=== PATIENT | female | born 1950 | race Caucasian/White ===

== ENCOUNTER 2017-12-30 16:06 | Observation (INO) | payer MEDICARE ==
[~2017-12-30] VITALS: Ht 162.6 cm; Wt 66.4 kg
[~2017-12-30 16:06] MED LIST: ALPR0.5T99 PO; BIOT5000 PO; CARB25TA PO; CITRTAB8 PO; COEN1CAP PO; ESTR0.5T9 PO; FOLI1 PO; FURO20 PO; GABA300C3 PO; HYDR-3129 PO; MAGN400C2 PO; METH25IN13 IV; NORC7.5T PO; OMEP20CA5 PO; PRED5TAB PO; PRIM50TA PO; RANI150T PO; RED600TA PO; ST JTAB PO; TAB-TAB PO; VITA200017 PO; WELLTAB39 PO
[2017-12-30 16:07] VITALS: BP 115/81; PULSE 88; RESP 16; TEMP 98.9; O2SAT 99
[2017-12-30] MEDS ORDERED: SODIUM CHLORIDE 0.9% FLUSH 10 ML FLUSH IVF PRN (16:45)
[2017-12-30 17:31] VITALS: O2SAT 99
--- NOTE | 2017-12-30 17:35 | RADRPT ---
EXAM DATE/TIME: 12/30/2017 16:53 [place] COMPARISON: No previous studies available for comparison. INDICATIONS : Chest pain. MEDICAL HISTORY : None. SURGICAL HISTORY : None. ENCOUNTER: Initial ACUITY: 1 day PAIN SCORE: 2/10 LOCATION: middle chest. FINDINGS: A single view of the chest demonstrates the lungs to be symmetrically aerated without evidence of mas s, infiltrate or effusion. The cardiomediastinal contours are unremarkable. Osseous structures are intact. There are multiple spinal stimulator leads projected over the thoracic spine. CONCLUSION: No acute disease. Gokul Cuenca MD on December 30, 2017 at 17:31 Board Certified Radiologist. This report was verified electronically.
--- NOTE | 2017-12-30 17:37 | PD ---
HPI Chief Complaint: Chest Pain Time Seen by Provider: 16:32 Travel History International Travel<30 days: No Contact w/Intl Traveler<30days: No Traveled to known affect area: No History of Present Illness HPI 67-year-old female with PMH of rheumatoid arthritis, Misha-Schilling, anxiety, depression, asthma, HLD, CVA, GERD, hiatal hernia, chronic back pain, implanted spinal stimulator on methotrexate presents to the ED for evaluation of sudden onset 7/10 centralized chest pain. Pain is steady, no alleviating or exacerbating factors reported. This occurred at around 830 this morning. States that she "felt like an elephant was sitting on my chest." She endorses intermittent shortness of breath throughout the day. She denies associated diaphoresis, nausea, vomiting, palpitations. She went to her hairdresser's, then to an appointment at her pain management provider before "swinging by" her primary care, Dr. Andujar's office. She had an EKG and chest x-ray performed there but was instructed to seek treatment at the ED. She endorses distant history of cigarette smoking. She endorses familiar history of PA in her grandmother. She has never had a stress test. She takes a baby aspirin daily PFSH Past Medical History Hx Anticoagulant Therapy: No Arthritis: Yes (RA, DDD) Asthma: Yes Autoimmune Disease: Yes ( RHEUMATOID ARTHRITIS. MISHA-BARRE. 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.) Anxiety: Yes Depression: Yes Heart Rhythm Problems: Yes Cancer: No Cardiovascular Problems: No High Cholesterol: Yes Cerebrovascular Accident: Yes Diabetes: No Diminished Hearing: No Endocrine: No Gastrointestinal Disorders: Yes (GERD, ULCER HX) GERD: Yes Glaucoma: No Genitourinary: No Headaches: Yes Hepatitis: No Hiatal Hernia: Yes Hypertension: No Immune Disorder: No Musculoskeletal: Yes (CHRONIC PAIN DUE TO NECK AND BACK SX, ARTHRITIS, DDD) Neurologic: Yes (SPINAL CORD INJURY, TIA) Psychiatric: Yes (CLAUSTRAPHOBIA, DEPRESSION, ANXIETY, PTSD) Reproductive: No Respiratory: No Thyroid Disease: No : 2 Para: 2 Ovarian Cysts: Yes Tubal Ligation: Yes Past Surgical History Abdominal Surgery: Yes (LAP THOMAS, APPY) AICD: No Appendectomy: Yes Body Medical Devices: SPINAL CORD STIMULATOR, LUMBAR CAGE Cardiac Surgery: No Cholecystectomy: Yes Ear Surgery: No Endocrine Surgery: No Eye Surgery: No Genitourinary Surgery: Yes (CYSTO AND RECTOCEL,PROLASPED BLADDER) Gynecologic Surgery: Yes (OVARIAN CYSTECTOMIES, RACHEL, AP REP.) Hysterectomy: Yes Joint Replacement: No Neurologic Surgery: Yes (TEMP;/ PERM SP. CD. STIM) Oral Surgery: No Pacemaker: No Other Surgery: Yes Social History Alcohol Use: Yes (Wine every night) Tobacco Use: No Substance Use: No Allergies-Medications (Allergen,Severity, Reaction): Coded Allergies: Sulfa (Sulfonamide Antibiotics) (Unverified Allergy, Severe, HIVES, THROAT CLOSES, 12/30/17) HIVES amoxicillin (Unverified Allergy, Severe, BREATHING DIFFICULTIES, 12/30/17) chlorpromazine (Unverified Allergy, Severe, CARDIAC ARREST, 12/30/17) SOB hydromorphone (Unverified Allergy, Severe, PASSED OUT, 12/30/17) meperidine (Unverified Allergy, Severe, PASSED OUT, 12/30/17) PASSED OUT morphine (Unverified Allergy, Severe, HIVES, THROAT CLOSES, 12/30/17) IV only cephalexin (Unverified Allergy, Mild, NAUSEA, 12/30/17) ciprofloxacin (Unverified Allergy, Mild, NAUSEA, 12/30/17) lithium (Unverified Allergy, Mild, MOUTH LESIONS, 12/30/17) piroxicam (Unverified Allergy, Mild, MOUTH LESIONS, 12/30/17) fentanyl (Verified Allergy, Unknown, 12/30/17) Uncoded Allergies: LACTOSE INTOLERANT (Allergy, Unknown, 08/08/03) Reported Meds & Prescriptions Reported Meds & Active Scripts Active [place] 10/325 (Hydrocodone-Acetaminophen 10325) 1 Tab Tab 1 Tab PO Q6H PRN Reported Lasix 20 Mg Tab (Furosemide) 20 Mg Tab 20 Mg PO DAILY PRN Raghu Coq-10 (Coenzyme Q10 (Ubidecarenone)) 400 Mg Cap 100 Mg PO DAILY Citracal (Calcium Citrate) 200 Mg Tab 200 Mg PO DAILY Red Yeast Rice (Red Yeast Rice Extract) 600 Mg Tab 1,200 Mg PO DAILY Multivitamin (Multivitamins) 1 Tab Tab 1 Tab PO DAILY Ranitidine 150 mg (Ranitidine HCl) 150 Mg Tab 1 Tab PO DAILY PRN Primidone 50 Mg Tab 25 Mg PO HS Vitamin D3 (Cholecalciferol) 2,000 Unit Cap 2,000 Units PO DAILY Aspirin Ec Low Dose (Aspirin) 81 Mg Tab 81 Mg PO HS Sinemet 25/100 (Carbidopa/Levodopa) 25 Mg/100 Mg Tab 3 Tab PO HS [place] 7.5/325 (Hydrocodone/Acetaminophen 7.5/325) 7.5 Mg/325 Mg Tab 1 Tab PO TID PRN Prednisone 5 Mg Tab 2.5 Mg PO DAILY Folate 1 Mg Tab (Folic Acid) 1 Mg Tab 1 Mg PO DIRECTED Methotrexate Sodium 25 Mg/Ml Inj 17.5 Mg IV WEEKLY Gabapentin 300 Mg Cap 900 Mg PO HS Gabapentin 300 Mg Cap 400 Mg PO DAILY Biotin 5 000 Tab 1,000 Mg PO DAILY Citracal (Calcium Citrate) 200 Mg Tab 200 Mg PO DAILY Magnesium (Magnesium Oxide (Mg Supplement) 400 Mg Cap 400 Mg PO HS Wellbutrin Xl (Bupropion HCl) 300 Mg Cheir 300 Mg PO DAILY Xanax (Alprazolam) 0.5 Mg Tab 0.25 Mg PO BID Prilosec 20 mg (Omeprazole) 20 Mg Capcr 20 Mg PO BID Estrace (Estradiol) 0.5 Mg Tab 0.5 Mg PO DAILY Review of Systems Except as stated in HPI: all other systems reviewed are Neg Physical Exam Narrative GENERAL: Well-nourished, well-developed pleasant white female in no acute distress. SKIN: Focused skin assessment warm/dry. HEAD: Normocephalic. EYES: No scleral icterus. No injection or drainage. NECK: Supple, trachea midline. No JVD or lymphadenopathy. CARDIOVASCULAR: Regular rate and rhythm without murmurs, gallops, or rubs. CHEST: Nontender throughout without deformity or crepitus. No retractions or use of accessory muscles. RESPIRATORY: Breath sounds equal bilaterally. Very mild, intermittent end expiratory wheezing. No accessory muscle use. GASTROINTESTINAL: Abdomen soft, non-tender, nondistended. Active bowel sounds. MUSCULOSKELETAL: No cyanosis, or edema. BACK: Nontender without obvious deformity. No CVA tenderness. Data Data Last Documented VS Vital Signs Date Time Temp Pulse Resp B/P (MAP) Pulse Ox O2 Delivery O2 Flow Rate FiO2 12/30/17 17:51 99 Nasal Cannula 2.00 12/30/17 17:45 78 15 142/80 (100) 12/30/17 16:07 98.9 Orders Orders Electrocardiogram (12/30/17 16:35) Ckmb (Isoenzyme) Profile (12/30/17 16:35) Complete Blood Count With Diff (12/30/17 16:35) Comprehensive Metabolic Panel (12/30/17 16:35) Magnesium (Mg) (12/30/17 16:35) Prothrombin Time / Inr (Pt) (12/30/17 16:35) Act Partial Throm Time (Ptt) (12/30/17 16:35) Troponin I (12/30/17 16:35) Chest, Single Ap (12/30/17 16:35) Ecg Monitoring (12/30/17 16:35) Bilateral Bp Monitoring (12/30/17 16:35) Iv Access Insert/Monitor (12/30/17 16:35) Oximetry (12/30/17 16:35) Sodium Chloride 0.9% Flush (Ns Flush) (12/30/17 16:45) Aspirin (Aspirin) (12/30/17 18:00) Nitroglycerin Sl (Nitrostat Sl) (12/30/17 18:00) Oxygen Administration (12/30/17 17:47) Diet Heart Healthy (12/30/17 Dinner) CKMB (12/30/17 17:34) CKMB% (12/30/17 17:34) Admit Order (Ed Use Only) (12/30/17 18:43) Place In Observation (12/30/17 18:43) Activity Bed Rest With Brp (12/30/17 18:43) Vital Signs (Adult) Q4H (12/30/17 18:43) Cardiac Rhythm .As Directed (12/30/17 18:43) Notify Dr: Other .PRN (12/30/17 18:43) Notify Dr. Parameters (12/30/17 18:43) Resp Oxygen Nasal Cannula (12/30/17 ) Ckmb (Isoenzyme) Profile (12/30/17 18:43) Ckmb (Isoenzyme) Profile (12/30/17 21:43) Troponin I (12/30/17 18:43) Troponin I (12/30/17 21:43) Electrocardiogram (12/30/17 18:43) Electrocardiogram (12/30/17 21:43) ^ Obtain (12/30/17 18:43) Sodium Chloride 0.9% Flush (Ns Flush) (12/30/17 18:45) Sodium Chloride 0.9% Flush (Ns Flush) (12/30/17 21:00) Dairy Nutritionist / Telemetry MASOUD.Q8H (12/30/17 18:43) Labs Laboratory Tests Test 12/30/17 17:34 White Blood Count 5.7 TH/MM3 Red Blood Count 3.80 MIL/MM3 Hemoglobin 13.1 GM/DL Hematocrit 38.4 % Mean Corpuscular Volume 101.0 FL Mean Corpuscular Hemoglobin 34.5 PG Mean Corpuscular Hemoglobin Concent 34.1 % Red Cell Distribution Width 15.5 % Platelet Count 298 TH/MM3 Mean Platelet Volume 7.7 FL Neutrophils (%) (Auto) 59.3 % Lymphocytes (%) (Auto) 29.9 % Monocytes (%) (Auto) 9.0 % Eosinophils (%) (Auto) 1.1 % Basophils (%) (Auto) 0.7 % Neutrophils # (Auto) 3.4 TH/MM3 Lymphocytes # (Auto) 1.7 TH/MM3 Monocytes # (Auto) 0.5 TH/MM3 Eosinophils # (Auto) 0.1 TH/MM3 Basophils # (Auto) 0.0 TH/MM3 CBC Comment DIFF FINAL Differential Comment Prothrombin Time 9.9 SEC Prothromb Time International Ratio 1.0 RATIO Activated Partial Thromboplast Time 23.3 SEC Blood Urea Nitrogen 19 MG/DL Creatinine 0.97 MG/DL Random Glucose 77 MG/DL Total Protein 6.8 GM/DL Albumin 3.6 GM/DL Calcium Level 9.0 MG/DL Magnesium Level 2.5 MG/DL Alkaline Phosphatase 79 U/L Aspartate Amino Transf (AST/SGOT) 21 U/L Alanine Aminotransferase (ALT/SGPT) 21 U/L Total Bilirubin 0.3 MG/DL Sodium Level 140 MEQ/L Potassium Level 3.8 MEQ/L Chloride Level 105 MEQ/L Carbon Dioxide Level 28.6 MEQ/L Anion Gap 6 MEQ/L Estimat Glomerular Filtration Rate 57 ML/MIN Total Creatine Kinase 114 U/L Creatine Kinase MB 1.8 NG/ML Troponin I LESS THAN 0.02 NG/ML MDM Medical Decision Making Medical Screen Exam Complete: Yes Emergency Medical Condition: Yes Differential Diagnosis Chest pain versus asthma exacerbation versus ACS versus other Narrative Course 67-year-old female with PMH of rheumatoid arthritis, Misha-Schilling, anxiety, depression, HLD, CVA, GERD, hiatal hernia, chronic back pain,asthma, implanted spinal stimulator on methotrexate presents to the ED for evaluation of sudden onset 7/10 centralized chest pain since 830 this morning. She states the pain has been constant since onset. States that she "felt like an elephant was sitting on my chest." She endorses intermittent shortness of breath throughout the day. She denies associated diaphoresis, nausea, vomiting, palpitations. She went to her hairdresser's, then to an appointment at her pain management provider before "swinging by" her primary care, Dr. Andujar's office. She had an EKG and chest x-ray performed there but was instructed to seek treatment at the ED. She endorses distant history of cigarette smoking. She endorses familiar history of PA in her grandmother. She has never had a stress test. Vitals reviewed. Physical exam reveals a pleasant white female in no acute distress. There is no appreciable M/R/G. No tenderness to palpation over the precordium. Chest is CTAB. No lower extremity edema. EKG rate 76, sinus rhythm. VA interval 184, QRS 87, QTC 430. Normal axis. No acute ST changes. Reviewed by Dr. Napoles. Cardiac enzymes negative 1. CXR no acute disease. MCV elevated on the CBC. Coags unremarkable. No concerning abnormalities of the CMP I discussed with the patient the need for observation and evaluation in the chest pain center. She is agreeable to this plan. Please see chest pain center notes for disposition. Diagnosis Primary Impression: Chest pain Qualified Codes: R07.9 - Chest pain, unspecified Gabby Pennington Dec 30, 2017 17:37
[2017-12-30 17:45] VITALS: BP 142/80; PULSE 78; RESP 15; O2SAT 98
[2017-12-30 17:49] LABS: AUTOMATED NEUTROPHIL # 3.4 TH/MM3 (1.8-7.7); BASOPHIL % 0.7 % (0.0-2.0); EOSINOPHIL # 0.1 TH/MM3 (0-0.4); EOSINOPHIL % 1.1 % (0.0-4.0); HEMATOCRIT 38.4 % (35.0-46.0); HEMOGLOBIN 13.1 GM/DL (11.6-15.3); LYMPH % 29.9 % (9.0-44.0); LYMPHOCYTE # 1.7 TH/MM3 (1.0-4.8); MEAN CORPUSCULAR HEMOGLOBIN 34.5 PG (27.0-34.0); MEAN CORPUSCULAR HGB CONC 34.1 % (32.0-36.0); MEAN PLATELET VOLUME 7.7 FL (7.0-11.0); MONOCYTE # 0.5 TH/MM3 (0-0.9); NEUT % 59.3 % (16.0-70.0); PLATELET COUNT 298 TH/MM3 (150-450); RED CELL DISTRIBUTION WIDTH 15.5 % (11.6-17.2); WHITE BLOOD COUNT 5.7 TH/MM3 (4.0-11.0)
[2017-12-30 17:59] LABS: PROTHROMBIN TIME - PATIENT 9.9 SEC (9.8-11.6)
[2017-12-30] MEDS ORDERED: ASPIRIN 325 MG TAB PO ONE (18:00)
[2017-12-30] MEDS ORDERED: NITROGLYCERIN 0.3 MG SL 100 TABS/BTL SL ONE (18:00)
[2017-12-30 18:16] LABS: ALBUMIN 3.6 GM/DL (3.4-5.0); AST (GOT) 21 U/L (15-37); BICARBONATE 28.6 MEQ/L (21.0-32.0); BLOOD UREA NITROGEN 19 MG/DL (7-18); CHLORIDE 105 MEQ/L (98-107); CREATININE 0.97 MG/DL (0.50-1.00); GLOMERULAR FILTRATION RATE 57 ML/MIN (>89); GLUCOSE,RANDOM 77 MG/DL (74-106); MAGNESIUM 2.5 MG/DL (1.5-2.5); SODIUM (NA) 140 MEQ/L (136-145)
[2017-12-30 18:17] LABS: ALT (GPT) 21 U/L (10-53)
[2017-12-30 18:24] LABS: ALKALINE PHOSPHATASE 79 U/L (45-117); TOTAL BILIRUBIN ADULT 0.3 MG/DL (0.2-1.0); TOTAL PROTEIN 6.8 GM/DL (6.4-8.2); TROPONIN I LESS THAN 0.02 NG/ML (0.02-0.05)
[2017-12-30] MEDS ORDERED: SODIUM CHLORIDE 0.9% FLUSH 10 ML FLUSH IV FLUSH PRN (18:45)
[2017-12-30] MEDS ORDERED: IOHEXOL 350 MG/ML 50 ML BTL (for Cath Lab) OTHER ONE (18:46)
[2017-12-30 21:56] LABS: TROPONIN I LESS THAN 0.02 NG/ML (0.02-0.05)
[2017-12-30] MEDS: GABAPENTIN 300 MG CAP PO SCH (22:05)
[2017-12-30] MEDS: CARBIDOPA/LEVODOPA 25 MG/100 MG TAB PO SCH (22:05)
[2017-12-30] MEDS: SODIUM CHLORIDE 0.9% FLUSH 10 ML FLUSH IV FLUSH SCH (22:06)
[2017-12-30 22:43] VITALS: BP 120/68; PULSE 69; RESP 18; TEMP 98.1; O2SAT 96
[2017-12-30] MEDS ORDERED: ACETAMINOPHEN/HYDROcodone 325 MG/7.5 MG TAB PO PRN (23:00)
[2017-12-31] VITALS (9 sets, daily range): BP systolic 117–147; BP diastolic 66–78; PULSE 57–78; RESP 16–20; TEMP 97.6–98; O2SAT 95–100
[2017-12-31 01:28] LABS: TROPONIN I LESS THAN 0.02 NG/ML (0.02-0.05)
[2017-12-31] MEDS ORDERED: NITROGLYCERIN 0.4 MG SL 25 TABS/BTL SL PRN (08:00)
[2017-12-31] MEDS ORDERED: ONDANSETRON HCL 4 MG/2 ML VIAL IV PUSH PRN (08:00)
--- NOTE | 2017-12-31 08:21 | HHI.HP ---
HPI Primary Care Physician Norman Andujar MD Chief Complaint Chest pain History of Present Illness 67-year-old female with history of rheumatoid arthritis, chronic back pain, and hyperlipidemia presents to emergency room for further evaluation of chest pain. Onset yesterday 0830 a.m. Location substernal. Pain came on quickly. Characterized as dull, steady pain. No radiation of pain initially. Moderate in severity. Reporting sometime in the middle of the night pain radiated under left inframammary area. No associated symptoms of nausea, vomiting, dyspnea, or diaphoresis. No known precipitating factors or relieving factors. Duration constant. No particular movements or position makes pain better or worse. Does not hurt to take a deep breath. Denies similar pain in the past. Pain easily reproduced with palpation. Review of Systems General: No fatigue,weakness, fever, chills, recent illness, or change in appetite. Has been in her general state of health. Endorses chronic back pain with spinal stimulator in place. HEENT: No MUSTAFA, no vision changes, no nasal congestion or drainage, no dysphasia CV: Continues to have chest pain as stated above. No palpitations or dizziness. RESP: No SOB, cough, wheeze, or recent URI. History of asthma, reported to be well controlled with rare use of inhaler required GI: No nausea, vomiting, bowel changes, diarrhea, constipation, pain, distention , melena, or blood in the stool. No unintentional weight gain or weight loss. Routine EGD/colonoscopy in near future for one year intermittent nausea. : No dysuria, urgency, frequency EXT: No lower leg edema, no paraesthesias MS: Chronic back pain, reports multiple surgeries on lumbar and cervical areas. Follows with pain management and has a spinal stimulator in place. No discomfort or change in ROM NEURO: No change in memory, difficulty with balance, LOC, or motor/sensory deficits PSYCH: No anxiety, depression, or situational stress. SKIN: No rashes, no concerning lesions Past Family Social History Allergies: Coded Allergies: Sulfa (Sulfonamide Antibiotics) (Unverified Allergy, Severe, HIVES, THROAT CLOSES, 12/30/17) HIVES amoxicillin (Unverified Allergy, Severe, BREATHING DIFFICULTIES, 12/30/17) chlorpromazine (Unverified Allergy, Severe, CARDIAC ARREST, 12/30/17) SOB hydromorphone (Unverified Allergy, Severe, PASSED OUT, 12/30/17) meperidine (Unverified Allergy, Severe, PASSED OUT, 12/30/17) PASSED OUT morphine (Unverified Allergy, Severe, HIVES, THROAT CLOSES, 12/30/17) IV only cephalexin (Unverified Allergy, Mild, NAUSEA, 12/30/17) ciprofloxacin (Unverified Allergy, Mild, NAUSEA, 12/30/17) lithium (Unverified Allergy, Mild, MOUTH LESIONS, 12/30/17) piroxicam (Unverified Allergy, Mild, MOUTH LESIONS, 12/30/17) fentanyl (Verified Allergy, Unknown, 12/30/17) Uncoded Allergies: LACTOSE INTOLERANT (Allergy, Unknown, 08/08/03) Past Medical History Rheumatoid arthritis, hyperlipidemia, chronic back pain Reported Medications Reported Meds & Active Scripts Active Sinemet 25/100 (Carbidopa/Levodopa) 25 Mg/100 Mg Tab 3 Tab PO HS Prednisone 5 Mg Tab 2.5 Mg PO DAILY Methotrexate Sodium 25 Mg/Ml Inj 17.5 Mg IV WEEKLY Gabapentin 300 Mg Cap 900 Mg PO HS Gabapentin 300 Mg Cap 400 Mg PO DAILY Wellbutrin Xl (Bupropion HCl) 300 Mg Cheri 300 Mg PO DAILY Xanax (Alprazolam) 0.5 Mg Tab 0.25 Mg PO BID Prilosec 20 mg (Omeprazole) 20 Mg Capcr 20 Mg PO BID [place] 7.5/325 (Hydrocodone/Acetaminophen 7.5/325) 7.5 Mg/325 Mg Tab 1 Tab PO TID PRNEstrace (Estradiol) 0.5 Mg Tab 0.5 Mg PO DAILY Follow medications are ordered as stated below-endorses often forgetting to take following medications Raghu Coq-10 (Coenzyme Q10 (Ubidecarenone)) 400 Mg Cap 100 Mg PO DAILY Citracal (Calcium Citrate) 200 Mg Tab 200 Mg PO DAILY Red Yeast Rice (Red Yeast Rice Extract) 600 Mg Tab 1,200 Mg PO DAILY Multivitamin (Multivitamins) 1 Tab Tab 1 Tab PO DAILY Ranitidine 150 mg (Ranitidine HCl) 150 Mg Tab 1 Tab PO DAILY PRN Primidone 50 Mg Tab 25 Mg PO HS Vitamin D3 (Cholecalciferol) 2,000 Unit Cap 2,000 Units PO DAILY Aspirin Ec Low Dose (Aspirin) 81 Mg Tab 81 Mg PO HS Lasix 20 Mg Tab (Furosemide) 20 Mg Tab 20 Mg PO DAILY PRN Folate 1 Mg Tab (Folic Acid) 1 Mg Tab 1 Mg PO DIRECTED Biotin 5 000 Tab 1,000 Mg PO DAILY Citracal (Calcium Citrate) 200 Mg Tab 200 Mg PO DAILY Magnesium (Magnesium Oxide (Mg Supplement) 400 Mg Cap 400 Mg PO HS Active Ordered Medications Current Medications Medications (Trade) Dose Ordered Sig/Wenceslao Route Start Time Stop Time Status Last Admin (NS Flush) 2 ml UNSCH PRN IV FLUSH 12/30/17 18:45 (NS Flush) 2 ml BID IV FLUSH 12/30/17 21:00 12/30/17 22:06 (Sinemet 25-100 Mg) 1 tab HS PO 12/30/17 21:00 12/30/17 22:05 (Neurontin) 900 mg HS PO 12/30/17 21:00 12/30/17 22:05 ([place] 7.5-325 Mg) 1 tab Q8H PRN PO 12/30/17 23:00 12/30/17 22:06 (Zofran Inj) 4 mg Q6H PRN IV PUSH 12/31/17 08:00 (Nitrostat Sl) 0.4 mg Q5M PRN SL 12/31/17 08:00 Family History Noncontributory for early onset cardiovascular disease. Social History Known hyperlipidemia. No known diabetes, coronary artery disease, or hypertension. Brief smoking history and teens. One glass wine nightly with dinner. Endorses sedentary lifestyle due to chronic pain. Past cardiac testing None. Physical Exam Vital Signs Vital Signs Date Time Temp Pulse Resp B/P (MAP) Pulse Ox O2 Delivery O2 Flow Rate FiO2 12/31/17 07:38 97.7 65 20 136/72 (93) 97 12/31/17 05:26 65 16 128/73 (91) 97 12/31/17 02:06 21 12/31/17 01:56 64 12/30/17 22:43 98.1 69 18 120/68 (85) 96 12/30/17 19:10 12/30/17 17:51 99 Nasal Cannula 2.00 12/30/17 17:45 78 15 142/80 (100) 98 Nasal Cannula 2.00 12/30/17 17:31 99 Room Air 12/30/17 16:07 98.9 88 16 115/81 (92) 99 Room Air Physical Exam GENERAL: Alert WN, WD, NAD, pleasant, female HEAD: NC, AT EYES: Sclera clear, conjunctiva without injection ENT: Mucous membranes pink and moist NECK: Supple, no masses, trachea midline CV: RRR, without murmur, rub, gallop, no JVD, S1-S2 no S3-S4. No carotid bruits. Substernal chest wall pain reproduced with palpation. RESP: Clear lungs throughout bilateral, no crackles, wheeze, rhonchi, symmetrical chest rise, nonlabored, able to speak in full sentences ABD: Soft, NT, ND, no masses, positive bowel tones EXT: Pulses +24, no dependent edema MS: Normal tone 4 extremities, no obvious deformities, full range of motion NEURO: CN II through CN XII grossly intact, motor strength 5/5 PSYCH: A+O 3, pleasant affect, appropriate speech, mood, insight and judgment SKIN: Normal turgor, normal texture, no lesions, no rashes, even hair distribution Laboratory Laboratory Tests Test 12/30/17 17:34 12/30/17 21:23 12/31/17 00:55 White Blood Count 5.7 Red Blood Count 3.80 Hemoglobin 13.1 Hematocrit 38.4 Mean Corpuscular Volume 101.0 Mean Corpuscular Hemoglobin 34.5 Mean Corpuscular Hemoglobin Concent 34.1 Red Cell Distribution Width 15.5 Platelet Count 298 Mean Platelet Volume 7.7 Neutrophils (%) (Auto) 59.3 Lymphocytes (%) (Auto) 29.9 Monocytes (%) (Auto) 9.0 Eosinophils (%) (Auto) 1.1 Basophils (%) (Auto) 0.7 Neutrophils # (Auto) 3.4 Lymphocytes # (Auto) 1.7 Monocytes # (Auto) 0.5 Eosinophils # (Auto) 0.1 Basophils # (Auto) 0.0 CBC Comment DIFF FINAL Differential Comment Prothrombin Time 9.9 Prothromb Time International Ratio 1.0 Activated Partial Thromboplast Time 23.3 Blood Urea Nitrogen 19 Creatinine 0.97 Random Glucose 77 Total Protein 6.8 Albumin 3.6 Calcium Level 9.0 Magnesium Level 2.5 Alkaline Phosphatase 79 Aspartate Amino Transf (AST/SGOT) 21 Alanine Aminotransferase (ALT/SGPT) 21 Total Bilirubin 0.3 Sodium Level 140 Potassium Level 3.8 Chloride Level 105 Carbon Dioxide Level 28.6 Anion Gap 6 Estimat Glomerular Filtration Rate 57 Total Creatine Kinase 114 92 91 Creatine Kinase MB 1.8 Troponin I LESS THAN 0.02 LESS THAN 0.02 LESS THAN 0.02 Result Diagram: 12/30/17 1734 12/30/17 1734 Imaging Last 48 hours Impressions Myocardial Perfusion Scan Nuc Med 12/31/17 0000 Signed Impressions: Service Date/Time: December 10:13 - CONCLUSION: Suspect there is ischemia at the septum, inferior lateral wall, and anterior wall as described above. RISK CATEGORY: Intermediate (1-3%% Annual Mortality Rate ) Porfirio Plata MD Chest X-Ray 12/30/17 1635 Signed Impressions: Service Date/Time: Saturday, December 30, 2017 16:53 - CONCLUSION: No acute disease. Gokul Cuenca MD Course EKG Normal sinus rhythm, normal axis, no ST or T-segment changes Caprini VTE Risk Assessment Caprini VTE Risk Assessment: Mod/High Risk (score >= 2) Caprini Risk Assessment Model Point Value = 1 Point Value = 2 Point Value = 3 Point Value = 5 Age 41-60 Minor surgery BMI > 25 kg/m2 Swollen legs Varicose veins or History of unexplained or recurrent spontaneous Oral contraceptives or hormone replacement Sepsis (< 1 month) Serious lung disease, including pneumonia (< 1 month) Abnormal pulmonary function Acute myocardial infarction Congestive heart failure (< 1 month) History of inflammatory bowel disease Medical patient at bed rest Age 61-74 Arthroscopic surgery Major open surgery (> 45 min) Laparoscopic surgery (> 45 min) Malignancy Confined to bed (> 72 hours) Immobilizing plaster cast Central venous access Age >= 75 History of VTE Family history of VTE Factor V Leiden Prothrombin [id number] Lupus anticoagulant Anticardiolipin antibodies Elevated serum homocysteine Heparin-induced thrombocytopenia Other congenital or acquired thrombophilia Stroke (< 1 month) Elective arthroplasty Hip, pelvis, or leg fracture Acute spinal cord injury (< 1 month) Prophylaxis Regimen Total Risk Factor Score Risk Level Prophylaxis Regimen 0-1 Low Early ambulation 2 Moderate Order ONE of the following: *Sequential Compression Device (SCD) *Heparin 5000 units SQ BID 3-4 Higher Order ONE of the following medications: *Heparin 5000 units SQ TID *Enoxaparin/Lovenox 40 mg SQ daily (WT < 150 kg, CrCl > 30 mL/min) *Enoxaparin/Lovenox 30 mg SQ daily (WT < 150 kg, CrCl > 10-29 mL/min) *Enoxaparin/Lovenox 30 mg SQ BID (WT < 150 kg, CrCl > 30 mL/min) AND/OR *Sequential Compression Device (SCD) 5 or more Highest Order ONE of the following medications: *Heparin 5000 units SQ TID (Preferred with Epidurals) *Enoxaparin/Lovenox 40 mg SQ daily (WT < 150 kg, CrCl > 30 mL/min) *Enoxaparin/Lovenox 30 mg SQ daily (WT < 150 kg, CrCl > 10-29 mL/min) *Enoxaparin/Lovenox 30 mg SQ BID (WT < 150 kg, CrCl > 30 mL/min) AND *Sequential Compression Device (SCD) Assessment and Plan Assessment and Plan #1 Atypical chest pain-admitted to chest pain center. Ruled out with 3 EKGs, cardiac enzymes, monitor on telemetry overnight. Seen and evaluated by Dr. Amarjit Schumacher. Discomfort most likely not cardiac in nature, however due to multiple risk factors recommended a cardiac stress testing. Due to chronic pain issues, will proceed with chemical stress testing. Patient is agreeable to plan of care. 1330 Dr. Schumacher spoke in length regarding abnormal lexiscan results and consults placed for medical management and cardiology consult. Awaiting call back from Dr. Salvador. [address] Baez who agrees to accept patient on his service for medical management. Makayla Ribeiro Dec 31, 2017 08:21
[2017-12-31] MEDS: buPROPion HCL 150 MG SUSTAINED RELEASE TAB PO SCH (08:43)
[2017-12-31] MEDS: GABAPENTIN 400 MG CAP PO SCH (08:43)
[2017-12-31] MEDS: SODIUM CHLORIDE 0.9% FLUSH 10 ML FLUSH IV FLUSH SCH ×2 (08:44→21:31)
[2017-12-31] MEDS ORDERED: REGADENOSON INJ 0.4 MG/5 ML SYR ONE (10:25)
--- NOTE | 2017-12-31 12:42 | RADRPT ---
EXAM DATE/TIME: 12/31/2017 10:13 [place] COMPARISON: No previous studies available for comparison. INDICATIONS : Chest pain with dyspnea. Angina. DOSE: 27.1 mCi Tc99m Myoview at stress. 8.5 mCi Tc99m Myoview at rest. 0.4 mg Lexiscan STRESS SYMPTOMS: Dyspnea, chest pain and dizziness. EJECTION FRACTION: > 70% MEDICAL HISTORY : Rheumatoid arthritis. Cerebrovascular disease. SURGICAL HISTORY : Tubal ligation. Hysterectomy. Cholecystectomy. Spinal stimulator. ENCOUNTER: Initial ACUITY: 1 day PAIN SCALE: 0/10 LOCATION: Bilateral chest TECHNIQUE: The patient underwent pharmacologic stress with infusion of prescribed dose. Continuous ECG tracing was monitored during stress. Gated SPECT imaging was performed after stress and conventional SPECT i maging was performed at rest. The examination was performed on a SPECT/CT scanner, both attenuation and non-corrected datasets were reviewed. FINDINGS: DISTRIBUTION: The maximum perfused segment at stress is in the anterior wall. PERFUSION STUDY: There is decreased activity on the stress images in the basal portions of the septum, the apical port ion of the inferior lateral wall, and the basal portion of the anterior wall concerning for ischemia. The difference in level of activity is in the order of 20-30%. GATED STUDY: There is intact wall motion and thickening without hypokinetic or dyskinetic segments. CONCLUSION: Suspect there is ischemia at the septum, inferior lateral wall, and anterior wall as described above. RISK CATEGORY: Intermediate (1-3% Annual Mortality Rate) Porfirio Plata MD on December 31, 2017 at 12:33 Board Certified Radiologist. This report was verified electronically.
[2017-12-31] MEDS ORDERED: LORazepam 2 MG/ML VIAL IV PUSH PRN (13:45)
--- NOTE | 2017-12-31 14:03 | TR ---
Date Performed: 12/31/2017 Time Performed: 10:39:22 DOCTOR: Amarjit Schumacher DRUG LIST: CLINICAL HISTORY: REASON FOR TEST: CHEST PAIN REASON FOR ENDING: OBSERVATION: CONCLUSION: Lexiscan stress test was performed under standard four minute protocol. Radionuclid e was injected one minute prior to ending the test. No electrocardiographic abormalities were present to suggest ischemia. Nuclear imaging and interpretation are pending. COMMENTS:
--- NOTE | 2017-12-31 14:06 | EKG ---
Date Performed: 12/30/2017 Time Performed: 21:28:02 PTAGE: 67 years EKG: Sinus rhythm NORMAL ECG PREVIOUS TRACING : 12/30/2017 18.03 Since previous tracing, no significant change noted DOCTOR: Amarjit Schumacher Interpretating Date/Time 12/31/2017 14:04:22
--- NOTE | 2017-12-31 14:06 | EKG ---
Date Performed: 12/30/2017 Time Performed: 18:03:54 PTAGE: 67 years EKG: Sinus rhythm NORMAL ECG PREVIOUS TRACING : 04/05/2009 17.56 Since previous tracing, no significant change noted DOCTOR: Amarjit Schumacher Interpretating Date/Time 12/31/2017 14:04:40
--- NOTE | 2017-12-31 14:08 | EKG ---
Date Performed: 12/30/2017 Time Performed: 16:34:50 PTAGE: 67 years EKG: Sinus rhythm baseline artifact,otherwise normal tracing. Since PREVIOUS TRACING , no significant change noted DOCTOR: Amarjit Schumacher Interpretating Date/Time 12/31/2017 14:06:57
[2017-12-31] MEDS: METOPROLOL TARTRATE 25 MG TAB PO SCH ×2 (14:33→21:31)
[2017-12-31 15:28] LABS: FREE T4 0.92 NG/DL (0.76-1.46)
[2017-12-31] MEDS ORDERED: ALBU2TAB4 PO (16:58)
[2017-12-31] MEDS ORDERED: CARB25TA9 PO ×2 (17:16→18:35)
[2017-12-31] MEDS ORDERED: ONDA4TAB15 (17:16)
[2017-12-31] MEDS ORDERED: FLUTI110I INH (17:16)
[2017-12-31] MEDS ORDERED: VENTAER INH (17:16)
[2017-12-31] MEDS ORDERED: PROM12.54 PO (17:16)
[2017-12-31] MEDS ORDERED: OMEP20CA2 PO (18:35)
[2017-12-31] MEDS ORDERED: REDPOW PO (18:35)
[2017-12-31] MEDS ORDERED: ASPI-516 CHEW (18:35)
[2017-12-31] MEDS ORDERED: BUPR300T PO (18:35)
[2017-12-31] MEDS ORDERED: BIOTCAP PO (18:35)
[2017-12-31] MEDS ORDERED: GABA300C5 PO (18:35)
[2017-12-31] MEDS ORDERED: PRED2.5T PO (18:35)
[2017-12-31] MEDS ORDERED: PRIM50TA5 PO (18:35)
[2017-12-31] MEDS ORDERED: ESTR0.5T PO (18:35)
[2017-12-31] MEDS ORDERED: FOLI400T PO (18:35)
[2017-12-31] MEDS ORDERED: ONCETAB7 (18:35)
[2017-12-31] MEDS ORDERED: ALPR0.25 PO (18:35)
[2017-12-31] MEDS ORDERED: D-20TAB3 PO (18:35)
[2017-12-31] MEDS ORDERED: UBID200C3 PO (18:35)
[2017-12-31] MEDS ORDERED: HYDR-3288 PO (18:35)
[2017-12-31] MEDS ORDERED: MAGN400T2 PO (18:35)
[2017-12-31] MEDS ORDERED: FURO20TA PO (18:35)
[2017-12-31] MEDS ORDERED: RANI150C PO (18:35)
[2017-12-31] MEDS ORDERED: CALC200T51 PO (18:35)
[2017-12-31] MEDS ORDERED: METH1INJ12 IV (18:35)
[2017-12-31] MEDS ORDERED: PILL SPLITTER OTHER PRN (20:30)
[2017-12-31] MEDS ORDERED: GABAPENTIN 300 MG CAP PO SCH (21:00)
[2017-12-31] MEDS ORDERED: predniSONE 5 MG TAB PO SCH (21:00)
[2017-12-31] MEDS ORDERED: CARBIDOPA/LEVODOPA 25 MG/100 MG TAB PO SCH (21:00)
[2017-12-31] MEDS: PANTOPRAZOLE SOD 20 MG DELAYED RELEASE TAB PO SCH (21:31)
[2017-12-31] MEDS: GABAPENTIN 300 MG CAP PO SCH (21:31)
[2017-12-31] MEDS: CARBIDOPA/LEVODOPA 25 MG/100 MG TAB PO SCH (21:31)
[2018-01-01 00:05] VITALS: PULSE 54
[2018-01-01 03:44] VITALS: PULSE 50
[2018-01-01 04:06] VITALS: BP 122/73; PULSE 60; RESP 18; TEMP 97.7; O2SAT 98
--- NOTE | 2018-01-01 07:44 | PD.CONS ---
HPI Consult Requested By Primary Care Physician Norman Andujar MD History of Present Illness 67-year-old female with history of rheumatoid arthritis, chronic pain, GERD, and hyperlipidemia who presented with chest pain. On Thursday morning she began having a pressure in the center of her chest when driving. She went to her neurologist who referred her to her PCP who referred her to the ED. She reports that she had a normal EKG and chest x-ray to her PCPs office. She states the pain lasted at least a day and continues to persist, but is not as severe as when it started. She denies any prior history of heart disease, hypertension, or diabetes. She states that she does have high cholesterol, but cannot take statins due to myalgias. She denies any family history of heart disease. She smoked from age [age]. She was admitted to the chest pain center and had negative serial cardiac enzymes and EKGs. She had a Lexiscan which showed suspected ischemia of the septum, inferior lateral wall, and anterior wall. The patient states that she needs to pick her grandson at the airport at 1 PM today and will not stay in the hospital today. I discussed possible cardiac catheterization which she says she is very familiar with this, as her recently had heart bypass surgery last year. She verbalizes understanding that she could have a severe adverse cardiac event including without treatment. She is asking for catheterization to be done as outpatient next week. (Song Avery) Review of Systems Negative except as stated in history of present illness (Song Avery) Past Family Social History Allergies: Coded Allergies: Sulfa (Sulfonamide Antibiotics) (Unverified Allergy, Severe, HIVES, THROAT CLOSES, 12/30/17) HIVES amoxicillin (Unverified Allergy, Severe, BREATHING DIFFICULTIES, 12/30/17) chlorpromazine (Unverified Allergy, Severe, CARDIAC ARREST, 12/30/17) SOB hydromorphone (Unverified Allergy, Severe, PASSED OUT, 12/30/17) meperidine (Unverified Allergy, Severe, PASSED OUT, 12/30/17) PASSED OUT morphine (Unverified Allergy, Severe, HIVES, THROAT CLOSES, 12/30/17) IV only cephalexin (Unverified Allergy, Mild, NAUSEA, 12/30/17) ciprofloxacin (Unverified Allergy, Mild, NAUSEA, 12/30/17) lithium (Unverified Allergy, Mild, MOUTH LESIONS, 12/30/17) piroxicam (Unverified Allergy, Mild, MOUTH LESIONS, 12/30/17) fentanyl (Verified Allergy, Unknown, 12/30/17) Uncoded Allergies: LACTOSE INTOLERANT (Allergy, Unknown, 08/08/03) Past Medical History Rheumatoid arthritis, hyperlipidemia, GERD, chronic pain Past Surgical History Abdominal Surgery: Yes (LAP THOMAS, APPY Appendectomy: Yes Body Medical Devices: SPINAL CORD STIMULATOR, LUMBAR CAGE Genitourinary Surgery: Yes (CYSTO AND RECTOCEL,PROLASPED BLADDER) Gynecologic Surgery: Yes (OVARIAN CYSTECTOMIES, RACHEL, AP REP.) Neurologic Surgery: Yes (TEMP;/ PERM SP. CD. STIM) Reported Medications Reported Meds & Active Scripts Active Reported Red Yeast Rice Extract (Red Yeast Rice Extract (Bulk)) 1 Pow Pow 600 Mg PO Ranitidine (Ranitidine HCl) 150 Mg Cap 150 Mg PO DAILY Primidone 50 Mg Tab 25 Mg PO HS Prednisone 2.5 Mg Tab 2.5 Mg PO HS Omeprazole 20 Mg Cap 20 Mg PO BID D-2000 Maximum Strength (Cholecalciferol) 2,000 Unit Tab 2,000 Units PO DAILY Calcium Citrate 200 Mg (950 Mg) Tablet 200 Mg PO DAILY Bupropion HCl ER 24 HR (Bupropion HCl) 300 Mg Tab 300 Mg PO DAILY Biotin 5 Mg Cap 5 Mg PO DAILY Aspirin 81 Mg Chew 81 Mg CHEW HS Alprazolam 0.25 Mg Tab 0.25 Mg PO Q8H PRN Once Daily (Multivitamin) 1 Each Tablet Magnesium Oxide 400 Mg Tab 400 Mg PO HS Methotrexate Sodium 1 Gram Inj 0.7 Mg IV WEEKLY Rock (Hydrocodone-Acetaminophen) 7.5-325 mg Tab 1 Tab PO Q6H PRN Gabapentin 300 Mg Cap 900 Mg PO HS Furosemide 20 Mg Tab 20 Mg PO DAILY Folic Acid 0.4 Mg Tab 400 Mcg PO DAILY Estradiol 0.5 Mg Tab 0.5 Mg PO DAILY Coenzyme Q-10 (Ubidecarenone) 200 Mg Capsule 100 Mg PO DAILY Carbidopa-Levodopa 25-100 Mg Tab 1.5 Tab PO DAILY@1600 Ondansetron (Ondansetron HCl) 4 Mg Tab Ventolin Hfa 18 GM Inh (Albuterol Sulfate) 90 Mcg/Act Aer 2 Puff INH Q4-6H PRN Promethazine (Promethazine HCl) 12.5 Mg Tab 25 Mg PO Q8HR PRN Flovent Hfa 12 GM Inh (Fluticasone Propionate) 110 Mcg/Act Inh 2 Puff INH BID Carbidopa-Levodopa 25-100 Mg Tab 1 Tab PO HS Albuterol (Albuterol Sulfate) 2 Mg Tab 2 Mg PO DIRECTED Primidone 50 Mg Tab 25 Mg PO HS Active Ordered Medications Current Medications Medications (Trade) Dose Ordered Sig/Wenceslao Route Start Time Stop Time Status Last Admin (NS Flush) 2 ml UNSCH PRN IV FLUSH 12/30/17 18:45 (NS Flush) 2 ml BID IV FLUSH 12/30/17 21:00 12/31/17 21:31 (Sinemet 25-100 Mg) 1 tab HS PO 12/30/17 21:00 12/31/17 21:31 (Neurontin) 900 mg HS PO 12/30/17 21:00 12/31/17 21:31 (Rock 7.5-325 Mg) 1 tab Q8H PRN PO 12/30/17 23:00 12/30/17 22:06 (Zofran Inj) 4 mg Q6H PRN IV PUSH 12/31/17 08:00 (Nitrostat Sl) 0.4 mg Q5M PRN SL 12/31/17 08:00 (Neurontin) 400 mg DAILY PO 12/31/17 09:00 12/31/17 08:43 (Wellbutrin Sr) 300 mg DAILY PO 12/31/17 09:00 12/31/17 08:43 (Ativan Inj) 1 mg Q6H PRN IV PUSH 12/31/17 13:45 12/31/17 14:34 (Lopressor) 25 mg Q12HR PO 12/31/17 14:00 12/31/17 21:31 (Sinemet 25-100 Mg) 1.5 tab DAILY@1600 PO 01/01/18 16:00 (Folate) 1 mg DAILY PO 01/01/18 09:00 (Protonix) 20 mg BID PO 12/31/17 21:00 12/31/17 21:31 (Deltasone) 2.5 mg HS PO 12/31/17 21:00 12/31/17 21:31 (Pill Splitter) 1 ea UNSCH PRN OTHER 12/31/17 20:30 Family History Denies any family history of cardiac disease Social History Remote history of tobacco use Glass of wine nightly (Song Avery) Physical Exam Vital Signs Vital Signs Date Time Temp Pulse Resp B/P (MAP) Pulse Ox O2 Delivery O2 Flow Rate FiO2 01/01/18 05:49 21 01/01/18 04:06 97.7 60 18 122/73 (89) 98 01/01/18 03:44 50 01/01/18 00:05 54 12/31/17 23:48 98.0 57 17 117/66 (83) 95 12/31/17 20:55 97.6 61 18 126/66 (86) 98 12/31/17 20:00 68 12/31/17 15:21 98.0 65 18 124/77 (93) 99 12/31/17 12:07 98.0 78 20 147/78 (101) 100 12/31/17 11:53 97 21 12/31/17 07:38 97.7 65 20 136/72 (93) 97 Physical Exam GENERAL: Well-developed well-nourished. In no acute distress. NECK: No carotid bruits. No JVD. CARDIOVASCULAR: Regular rate and rhythm. No murmur appreciated. RESPIRATORY: No accessory muscle use. Clear to auscultation. Breath sounds equal bilaterally. MUSCULOSKELETAL: No clubbing or cyanosis. No edema. NEUROLOGICAL: Awake and alert. Normal speech. (Song Avery) Result Diagram: 12/30/17 1734 12/30/17 1734 Assessment and Plan Assessment and Plan 67-year-old female with history of rheumatoid arthritis, chronic pain, GERD, and hyperlipidemia who presented with chest pain. On Thursday morning she began having a pressure in the center of her chest when driving. She went to her neurologist who referred her to her PCP who referred her to the ED. She reports that she had a normal EKG and chest x-ray to her PCPs office. She states the pain lasted at least a day and continues to persist, but is not as severe as when it started. She denies any prior history of heart disease, hypertension, or diabetes. She states that she does have high cholesterol, but cannot take statins due to myalgias. She denies any family history of heart disease. She smoked from age [age]. She was admitted to the chest pain center and had negative serial cardiac enzymes and EKGs. She had a Lexiscan which showed suspected ischemia of the septum, inferior lateral wall, and anterior wall. The patient states that she needs to pick her grandson at the airport at 1 PM today and will not stay in the hospital today. I discussed possible cardiac catheterization which she says she is very familiar with this, as her recently had heart bypass surgery last year. She verbalizes understanding that she could have a severe adverse cardiac event including without treatment. She is asking for catheterization to be done as outpatient next week. Atypical chest pain with positive nuclear stress test: Symptoms are quite atypical and stress test does appear minimally positive. Currently refusing inpatient cardiac catheterization at this time. Will probably be DC'd today. Discussed Condition With Dr. Salvador (Song Avery) Assessment and Plan atypical symptoms but continued chest pain, recurrent abnormal SPECT need definitive diagnosis plan for [facility] today (Lazarus Salvador MD) Song Avery Jan 01, 2018 07:44 Lazarus Salvador MD Jan 01, 2018 11:53
[2018-01-01 08:30] VITALS: BP 122/60; PULSE 70; RESP 20; TEMP 98.2; O2SAT 98
[2018-01-01] MEDS ORDERED: buPROPion HCL 150 MG SUSTAINED RELEASE TAB PO SCH (09:00)
[2018-01-01] MEDS: SODIUM CHLORIDE 0.9% FLUSH 10 ML FLUSH IV FLUSH SCH (09:00)
[2018-01-01] MEDS ORDERED: FOLIC ACID 1 MG TAB PO SCH (09:00)
[2018-01-01] MEDS: GABAPENTIN 400 MG CAP PO SCH (09:15)
[2018-01-01] MEDS: buPROPion HCL 150 MG SUSTAINED RELEASE TAB PO SCH (09:16)
[2018-01-01] MEDS: METOPROLOL TARTRATE 25 MG TAB PO SCH (09:16)
[2018-01-01] MEDS: PANTOPRAZOLE SOD 20 MG DELAYED RELEASE TAB PO SCH (09:17)
[2018-01-01 09:48] VITALS: O2SAT 99
--- NOTE | 2018-01-01 10:54 | HHI.PR ---
Subjective Remarks Pt is a 67 y/o F who was sent to the ER by her PCP with c/o chest pain. Pt had a lexiscan (12/31/17) which was significantly abnormal. Pt's cardiac enzymes were negative and pt currently denies chest pain. Objective Vitals Vital Signs Date Time Temp Pulse Resp B/P (MAP) Pulse Ox O2 Delivery O2 Flow Rate FiO2 01/01/18 09:48 99 21 01/01/18 08:30 98.2 70 20 122/60 (80) 98 01/01/18 05:49 21 01/01/18 04:06 97.7 60 18 122/73 (89) 98 01/01/18 03:44 50 01/01/18 00:05 54 12/31/17 23:48 98.0 57 17 117/66 (83) 95 12/31/17 20:55 97.6 61 18 126/66 (86) 98 12/31/17 20:00 68 12/31/17 15:21 98.0 65 18 124/77 (93) 99 12/31/17 12:07 98.0 78 20 147/78 (101) 100 12/31/17 11:53 97 21 01/01/18 01/01/18 01/02/18 15:00 23:00 07:00 # Voids 1 Result Diagram: 12/30/17 1734 12/30/17 1734 Imaging Last Impressions Myocardial Perfusion Scan Nuc Med 12/31/17 0000 Signed Impressions: Service Date/Time: December 10:13 - CONCLUSION: Suspect there is ischemia at the septum, inferior lateral wall, and anterior wall as described above. RISK CATEGORY: Intermediate (1-3%% Annual Mortality Rate ) Porfirio Plata MD Chest X-Ray 12/30/17 1635 Signed Impressions: Service Date/Time: Saturday, December 30, 2017 16:53 - CONCLUSION: No acute disease. Gokul Cuenca MD Objective Remarks GENERAL: This is a well-nourished, well-developed patient, in no apparent distress. CARDIOVASCULAR: Regular rate and rhythm without murmurs, gallops, or rubs. RESPIRATORY: Clear to auscultation. Breath sounds equal bilaterally. No wheezes , rales, or rhonchi. GASTROINTESTINAL: Abdomen soft, non-tender, nondistended. Normal active bowel sounds MUSCULOSKELETAL: Extremities without clubbing, cyanosis, or edema. NEURO: Alert & Oriented x4 to person, place, time, situation. Moves all ext x4 A/P Problem List: (1) Chest pain ICD Codes: R07.9 - Chest pain, unspecified Status: Acute Plan: - pt presented to the ER with c/o chest pain - serial Cardiac enzymes were negative - serial EKG did NOT show acute ischemic changes - lexiscan (01/01/18) - Suspect there is ischemia at the septum, inferior lateral wall, and anterior wall as described above. - metoprolol, NTG prn - Pt agrees to go to the cardiac labor relations specialist with Dr. Salvador, this morning. - LHC showed NO stenosis requiring intervention - Case d/w Dr. Salvador following [facility] - NO medication changes - discharge to home - f/u with PCP in 1 week - f/u with Dr. Salvador in 2-3 weeks. (2) Rheumatoid arthritis ICD Codes: M06.9 - Rheumatoid arthritis Status: Chronic Plan: - prednisone - methotrexate - norco prn (3) Depression ICD Codes: F32.9 - Depression Status: Chronic Plan: - Problem Qualifiers (1) Chest pain: Qualified Codes: R07.9 - Chest pain, unspecified (2) Rheumatoid arthritis: Qualified Codes: M06.9 - Rheumatoid arthritis, unspecified (3) Depression: Qualified Codes: F32.9 - Major depressive disorder, single episode, unspecified Dameon Baez DO Jan 01, 2018 10:54
--- NOTE | 2018-01-01 12:42 | CATHPROC ---
[employer] HIS Report Study Information Study Number Admission Scheduled Start Study Start [id number] Dec 30 2017 6:45PM 01/01/2018 Jan 01 2018 11:44AM [place] [facility] Cardiac Catheterization Admit Source Facility Department Emergency department [facility] - [employer] Physician and Clinical Staff Initial Lazarus Mejia Beef SelectorDelilah Bowen RN Beef SelectorDieter Rubi RN cathlab, cathlab Recorder Lavelle Tony RCIS(BS) Scrub Alexander Torre,RT(R) Scrub Tamanna Tristan ,RT(R) Procedures Performed Procedure Location (Site) Vessel Name Coronary Angiograms LCA Left Coronary Coronary Angiograms RCA Right Coronary L Heart Cath Equipment Time Trade Show Coordinator Description Size Mfg Part Number Used/Scraped TRANSDUCER, TRUWAVE [id number] 11:49 TREVINO SHUKLA * Used W/STOCKCOCK *[id number] [id number] *[id number] [id number] *[id number] 11:49 [employer] PACK, CCL CUSTOM * Used *[id number] 11:49 [employer] SUPPORT, ARTERIAL ADULT 16059 *[id number] Used [id number] 11:49 [employer] PACER PEN, SKIN DUAL W/ RULER * Used *[id number] BAND, RADIAL COMPRESSION TR [id number] 12:38 [employer] MEDICAL 24CM Used SHORT 24 *[id number] SHEATH, FR6 RADIAL PRELUDE 11:49 [employer] FR 6 [id number] Used EASE 11CM [id number] 11:49 [employer] WIRE, EXCHANGE 260CM 3MMJ 260CM Used *[id number] 11:49 [employer] OMNIPAQUE, 350 MG, 150ML 150ML [id number] Used [id number] 11:49 [employer] BLANKET,WARM AIR CCL * Used *[id number] History: Current Medications Medication Dosage/Unit Route Frequency Last Date/Time Taken ASA History: Allergies Allergy Reaction Sulfa (Sulfonamide Antibiotics) HIVES, THROAT CLOSES lithium MOUTH LESIONS morphine HIVES, THROAT CLOSES piroxicam MOUTH LESIONS cephalexin NAUSEA ciprofloxacin NAUSEA amoxicillin BREATHING DIFFICULTIES chlorpromazine CARDIAC ARREST meperidine PASSED OUT hydromorphone PASSED OUT LACTOSE INTOLERANT fentanyl History: Risk Factors Family History of Hypertension Dyslipidemia Previous ME Previous Heart Failure Premature CAD No Yes No No No Prior Valve Prior PCI Prior CABG Surgery No No No Cerebrovascular Peripheral Artery Chronic Lung On Dialysis Diabetes Disease Disease Disease No Yes No No No History: Symptoms/Diagnosis Selection Items Chest pain History: Stress Tests Stress or Imaging Studies Performed Yes Standard Exercise Stress Test No Stress Echo No Stress Test SPECT Stress Test SPECT Result Stress Test SPECT Ischemia Risk/Extent Yes Positive Intermediate Stress Test CMR No Cardiac CTA Coronary Calcium Score No No History: Other Current Smoker Method Quit Packs a Day Years Used Pack Years No Cigarettes 48 Years Ago 1 67 67 Labs Hgb (g/dl) Hct (%) WBC (l/cumm) Platelets (thousands) 11.60-17.00 35.00-51.00 4.00-11.00 150.00-450.00 13.1 38.4 5.7 298 Glucose (mg/dl) BUN (mg/dl) Creatinine (mg/dl) BUN:Creatinine (1:x) 74.00-106.00 7.00-18.00 0.50-1.30 10.00-20.00 77 19 0.9 21.1 Na (meq/l) K (meq/l) 136.00-145.00 3.50-5.10 140 3.8 INR (PTT:PT) 0.90-1.10 1 Troponin I (ng/ml) CPK (u/l) CPK-MB (ng/ML) 0.02-0.05 26.00-308.00 0.50-3.60 0.02 91 1.8 Medication Medication Total Dose (Bolus/Oral) Medication Total Dosage/Unit 1% XYLOCAINE 3 mL HEPARIN 3000 units NTG (IC) 200 mcg VERSED 2 mg Medications (Bolus/Oral) Medication Time Given Dosage/Unit Administered By Reason VERSED 01/01/2018 12:25:20 PM 2 mg Dieter Ty RN 2 mg VERSED given in lab by Dieter Ty RN in Left Antecubital via Peripheral IV. Ordered by Lazarus Salvador. 1% XYLOCAINE 01/01/2018 12:27:20 PM 3 mL Lazarus Salvador 3 mL 1% XYLOCAINE given in lab by Lazarus Salvador in Right Radial via Subcutaneous. NTG (IC) 01/01/2018 12:29:02 PM 200 mcg Lazarus Salvador 200 mcg NTG (IC) given in lab by Lazarus Salvador in Right Radial via Intra-arterial. HEPARIN 01/01/2018 12:29:32 PM 3000 units Dieter Ty RN 3000 units HEPARIN given in lab by Dieter yT RN in Left Antecubital via Peripheral IV. Ordered by Lazarus Salvador. Medication (Drip) Medication Time Given Dosage/Unit Concentration/Unit Diluent (ml) Solution IV Solutions 01/01/2018 11:57:57 AM 0 mL (IV) 500 NaCl .9 Patient arrived on IV Solutions given by corine pool in Left Antecubital via Peripheral IV. Pump /Drip Flow = 20 ml/hr using NaCl .9. Ordered by Lazarus Salvador. Initial Case Assessment Cardiovascular HR Rhythm NIBP Chest Pain 55 NSR 129/69 0 Edema Present Skin color Skin None Normal Warm Dry Circulatory - Right Pulses Dorsalis Pedis Femoral Radial 3 3 3 Scale (0,1,2,3,4,d) Scale (0,1,2,3,4,d) Neurological State Oriented to time-place- Alert Moves all extremities person Respiration - General Respiration Rate SpO2 (%) (B/min) 15 99 Final Case Assessment Cardiovascular HR Rhythm NIBP Chest Pain 57 NSR 119/59 0 Edema Present Skin color Skin None Normal Warm Dry Circulatory - Right Pulses Dorsalis Pedis Femoral Radial 3 3 3 Scale (0,1,2,3,4,d) Scale (0,1,2,3,4,d) Neurological State Oriented to time-place- Alert Moves all extremities person Respiration - General Respiration Rate SpO2 (%) (B/min) 15 99 Chronological Log Time Study Chronological Log 11:57:24 Patient arrived via Bed. 11:57:25 Patient Name, D.O.B, / Armband Verified By R.N. 11:57:26 Consent signed by the physician and the patient and verified by the [employer] staff. 11:57:26 Pre-op and post- op instructions given; patient acknowledges understanding of instructions. 11:57:27 Verbal Stimulation=2 Physical Stimulation=2 Airway=2 Respiration=2 TOTAL=8. (0=absent, 1=li mited, 2=present) 11:57:34 Presedation assessment performed by [employer] RN. 11:57:34 Allens test performed on the right radial and ulnar artery. POSITIVE. 11:57:45 Immediate Presedation assesment performed by physician. 11:57:45 Patient has been NPO for More than 6Hrs. 11:57:46 Skin Breakdown- none per patient 11:57:52 Shay Prominences Protected 11:57:52 A # 20 IV was noted in the Antecubital (left). Grade = 0 Patient arrived on IV Solutions given by cathlab, cathlab in Left Antecubital via Peripheral IV . Pump/Drip Flow = 20 11:57:57 ml/hr using NaCl .9. Ordered by Lazarus Salvador. 11:58:14 History and physical on the chart or being dictated. Vitals capture started with the following parameters, Patient=Adult, Interval=5 min, Initial Pr opmlnf=077 mmHg, 12:05:03 Deflation Rate=5 mmHg, Cuff placed on Right Arm Assessment: Initial Case, HR=55 BPM, Rhythm=NSR, FPLN=901/69 mmhg, Chest Pain=0, Edema=None, Color=Normal, Skin = Warm, Dry 12:05:16 Right Pulses: Blair Ped=3, Femoral=3, Radial=3 Neurological: State=Alert, Ox3, HOLM Respiration: Resp=15 B/min, SpO2=99 % 12:05:39 TAIU=782/69 mmhg, SpO2=99.0 %, Pain=0, Franklyn=10, Melendez=2 12:11:17 HR=54 bpm, KAFO=187/74 mmhg, TbO7=916.0 %, Resp=15 B/min, Pain=0, Franklyn=10, Melendez=2 12:11:26 Reference ECG taken 12:11:29 Right Radial and groin(s) prepped with 2% chlorhexidine, and draped after a 3 min. waiting time. 12:15:39 HR=58 bpm, QENS=402/77 mmhg, SpO2=98.0 %, Resp=15 B/min, Pain=0, Franklyn=10, Melendez=2 12:16:30 MD paged 12:17:04 MD responded 12:18:24 Pressure channel 1 zeroed. 12:21:05 HR=55 bpm, WFLR=779/77 mmhg, SpO2=96.0 %, Resp=15 B/min, Pain=0, Franklyn=10, Melendez=2 12:23:43 MD arrived. 12:23:46 Contrast Scanned 12:23:47 Immediate Presedation assesment performed by physician. 12:25:20 2 mg VERSED given in lab by Dieter Ty RN in Left Antecubital via Peripheral IV. Ordered by Lazarus Salvador. 12:25:43 HR=56 bpm, WWXA=074/70 mmhg, SpO2=97.0 %, Resp=15 B/min, Pain=0, Franklyn=10, Melendez=2 Time Out. Correct patient, correct procedure, correct physician, power injector not loaded with contrast with surgical 12:27:03 team present. Time Out Concurred by MD and individual staff in procedure. 12:: Case Start 12::09 Verbal Stimulation=2 Physical Stimulation=2 Airway=2 Respiration=2 TOTAL=8. (0=absent, 1=li mited, 2=present) 12:27:20 3 mL 1% XYLOCAINE given in lab by Lazarus Salvador in Right Radial via Subcutaneous. 12:28:37 Access site was Right Radial Artery. A SHEATH, FR6 RADIAL PRELUDE EASE 11CM FR 6 was advanced into the Radial (right) using the Perc utaneous 12::54 technique. 12:29:02 200 mcg NTG (IC) given in lab by Lazarus Salvador in Right Radial via Intra-arterial. 12:29:20 In the Radial (right) the SHEATH, FR6 RADIAL PRELUDE EASE 11CM FR [address] by Lazarus Salvador. A JR 5.0 INFINITI CATHETER FR 5 was advanced over a wire. OMNIPAQUE, 350 MG, 150ML 150ML was us ed for 12:29:27 injections. 12:29:32 3000 units HEPARIN given in lab by Dieter Ty RN in Left Antecubital via Peripheral IV. Ordered by Lazarus Salvador. 12:30:46 HR=57 bpm, PHNR=876/66 mmhg, SpO2=95 %, Resp=16 B/min, Pain=0, Franklyn=10, Melendez=2 12:32:51 The RCA was injected and visualized at various angles. OMNIPAQUE, 350 MG, 150ML 150ML use d. Recorded Pressure: Ao, HR=57, Condition=Condition 1 12:33:14 (Aorta) Ao 97/52/71 After removing the current catheter a JL 3.5 INFINITI CATHETER FR 5 was advanced over a WIRE, EXCHANGE 260CM 12:33:20 3MMJ 260CM. 12:35:37 HR=57 bpm, MEPW=209/59 mmhg, SpO2=91.0 %, Resp=14 B/min, Pain=0, Franklyn=10, Melendez=2 12:35:59 The LCA was injected and visualized at various angles. OMNIPAQUE, 350 MG, 150ML 150ML use d. 12:37:09 Catheter was removed 12:37:11 Case End Assessment: Final Case, HR=57 BPM, Rhythm=NSR, JQVN=399/59 mmhg, Chest Pain=0, Edema=None, Col or=Normal, Skin = Warm, Dry 12:37:23 Right Pulses: Balir Ped=3, Femoral=3, Radial=3 Neurological: State=Alert, Ox3, HOLM Respiration: Resp=15 B/min, SpO2=99 % 12:37:35 Catheter(s) removed without difficulty Radial Compression Device Used. 13 mLs of air placed in BAND, RADIAL COMPRESSION TR SHORT 24 2 4CM. Affected 12:37:36 hand 95 % O2 saturation. 12:37:51 Sterile dressing applied to site 12:37:51 No case complications noted. 12:37:52 Cine recording checked. 12:37:54 Bedside Report will be given. 12:37:55 Contrast Scanned 12:37:56 Verbal Stimulation=2 Physical Stimulation=2 Airway=2 Respiration=2 TOTAL=8. (0=absent, 1=l imited, 2=present) 12:38:05 A Left Heart Cath was performed. 12:40:16 Vitals capture stopped. 12:42:50 [facility] End Study - Contrast Media Used In Study Contrast Total Opened (mL) Total Used (mL) Total Wasted (mL) Omnipaque 30 30 0 End Study - Maximum Contrast Load Max Contrast Load (mL) 368.4 End Study - Radiation Exposure Fluoro Time (minutes) 0.9 End Study - Patient Disposition Complications Transferred To Interventional Outcome No [employer] Holding No attempt made
[2018-01-01] MEDS ORDERED: MISC INFORMATION XX ONE (12:45)
--- NOTE | 2018-01-01 14:05 | MA ---
cc: RADHA BERG DATE: 01/01/2018 PROCEDURE PERFORMED 1. Fluoroscopy interpretation 2. Coronary angiography. Method; and alternatives us the patient. The patient understood and consented. PROCEDURE The patient brought catheterization lab and the catheterization table. Right wrist was prepped and draped in sterile fashion. Right wrist was anesthetized 2% lidocaine. Right radial artery is cannulated 6-Kiswahili 7 cm sheath was placed without difficulty. CORONARY ANGIOGRAPHY 1. Left main coronary angiographically normal. 2. The left anterior descending coronary angiographically normal. 3. The left circumflex small caliber size angiographically normal. 4. The right coronary is a dominant vessel giving rise to a posterior ascending coronary is angiographically normal. CONCLUSION Angiographically normal coronary arteries. PLAN We will monitor the patient closely for any post procedural complications. Obviously the stress test was a false positive she be discharged to follow up with her outpatient primary care doctor for noncardiac chest pain. MD MILLIE Magallon/sam /12:43 PM /12:52 PM
[2018-01-01] MEDS ORDERED: CARBIDOPA/LEVODOPA 25 MG/100 MG TAB PO SCH (16:00)
== END 2018-01-01 17:20 | disposition home or self-care (01) ==
LOC: NEPE 16:06 → NEDA 18:45 → NEPHCDU 19:23
PROVIDERS: ADMIT Hospitalist; ATTEND Hospitalist
DX: R07.89 Other chest pain (principal); Z86.73 Personal history of transient ischemic attack (TIA), and cerebral infarction without residual deficits; M06.9 Rheumatoid arthritis, unspecified; K21.9 Gastro-esophageal reflux disease without esophagitis; J45.909 Unspecified asthma, uncomplicated; G89.29 Other chronic pain; F32.9 Major depressive disorder, single episode, unspecified; E78.5 Hyperlipidemia, unspecified; M54.9 Dorsalgia, unspecified; K44.9 Diaphragmatic hernia without obstruction or gangrene; F41.9 Anxiety disorder, unspecified; R06.02 Shortness of breath; F43.10 Post-traumatic stress disorder, unspecified; Z79.899 Other long term (current) drug therapy
CPT/HCPCS: 01920; 71045; 78452; 80053; 82550; 82552; 83735; 84439; 84443; 84484; 85025; 85610; 85730; 93005; 93017; 93458; 96374; 99152; 99285; A9502; C1893; G0378; J2060; J2785; J7512; Q9967